=== PATIENT | male | born 1985 | race Caucasian/White ===

== ENCOUNTER 2023-05-18 09:32 | Emergency (ER) | payer OTHER, SELFPAY ==
[2023-05-18 09:39] VITALS: BP 133/80; PULSE 64; RESP 16; TEMP 36.4; O2SAT 100
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
[2023-05-18] MEDS: ACETAMINOPHEN 500 MG TABLET 1000 MG PO (10:39)
[2023-05-18] MEDS: KETOROLAC (*BKC) 60 MG/2 ML VIAL IM (10:40)
[2023-05-18 10:47] VITALS: BP 118/70; PULSE 74; RESP 14; TEMP 36.3; O2SAT 98
== END 2023-05-18 10:49 | disposition home or self-care (01) ==
PROVIDERS: Emergency Provider Physician Assistant
DX: M79.642 Pain in left hand (principal); M79.641 Pain in right hand; G89.21 Chronic pain due to trauma
CPT/HCPCS: 96372; 99283; A9270; J1885